=== PATIENT | male | born 1995 | race Caucasian/White ===

== ENCOUNTER 2016-12-18 03:45 | Emergency (ER) | payer OTHER ==
[~2016-12-18] VITALS: Ht 172.7 cm; Wt 72.6 kg
--- NOTE | 2016-12-18 03:45 | NUR ---
BIB [facility] TO ER BED 3
[2016-12-18 03:52] VITALS: BP 133/80
--- NOTE | 2016-12-18 03:53 | NUR ---
Patient being evaluated by physician at bedside.
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
--- NOTE | 2016-12-18 04:05 | NUR ---
PATIENT BIB [facility] OFFICER. PATIENT EXAMINED BY DR. VALIENTE. PATIENT MEDICALLY CLEARED AND RELEASED IN CUSTODY IN STABLE CONDITION. ORIGINAL PRE-BOOK FORM GIVEN TO OFFICER DORIAN .
[2016-12-18 04:07] VITALS: BP 125/74
== END 2016-12-18 04:05 ==
LOC: MED 03:45
DX: Z02.89 Encounter for other administrative examinations (principal); V89.2XXA Person injured in unspecified motor-vehicle accident, traffic, initial encounter; Y93.89 Activity, other specified; Y92.89 Other specified places as the place of occurrence of the external cause; Y99.8 Other external cause status
CPT/HCPCS: 71010; 99283; Q0092